=== PATIENT | female | born 1965 | race Caucasian/White ===

== ENCOUNTER 2021-10-06 11:46 | Emergency (ER) | payer SELFPAY ==
[2021-10-06 11:57] VITALS: BP 138/66; PULSE 83; RESP 20; TEMP 36.8; O2SAT 96; BMI 69.3
--- NOTE | 2021-10-06 12:05 | CRLHL7_ITS ---
For Patients: As a result of the Cures Act, medical imaging exams and procedure reports are released immediately into your electronic medical record. You may view this report before your referring provider. If you have questions, please contact your health care provider. INDICATION: [id number], weakness TECHNIQUE: CT chest pulmonary angiogram acquired with IV contrast. 95 cc Isovue 370 COMPARISON: None FINDINGS: Cardiovascular structures: Normal vascular enhancement of the pulmonary arteries, no sign of pulmonary embolism. Heart size is normal. No sign of aneurysm or dissection in the thoracic aorta. Mediastinum and antonio: No mass or adenopathy. Lungs: Clear. Pleura and pericardium: No effusions. Chest wall and axilla: No mass or adenopathy. Bones: No significant findings. Upper abdomen: Hiatal hernia. IMPRESSION: No evidence of pulmonary emboli or pneumonia. Hiatal hernia. Dictated by Jason Sanchez MD @ 10/06/2021 2:05:20 PM Please note that all CT scans at this facility use dose modulation, iterative reconstruction, and/or weight-based dosing when appropriate to reduce radiation dose to as low as reasonably achievable. Dictated by: Jason Sanchez MD @ 10/06/2021 14:05:27 (Electronically Signed)
--- NOTE | 2021-10-06 12:15 | ED.GENADULT ---
HPI - General Adult General Time Seen by Provider: 12:14 Date Seen: 10/06/21 Chief complaint: Weakness Stated complaint: Shortness of breath,fatigue Time Seen by Provider: 10/06/21 11:57 Source: patient Mode of arrival: ambulatory Limitations: no limitations History of Present Illness HPI narrative: The patient is a 55-year-old female who reports a history of weakness, and shortness of breath since Saturday. She developed some mouth sores as well, felt short of breath, and the shortness of breath continues today. She has had COVID in the past, she feels generally weak, no focal neurologic complaint, no headache. No history of respiratory issues but family has a history of asthma. No history of coronary artery disease or COPD. She lives in [place], she was dropping off her car to her daughter's to borrow, and stop by the ER as she was not feeling well. No leg swelling edema, no bleeding or clotting problems. No pain. Related Data Home Medications Medication Instructions Recorded Confirmed control 10/06/21 cyclobenzaprine PO DAILY PRN 10/06/21 Allergies Allergy/AdvReac Type Severity Reaction Status Date / Time No Known Drug Allergies Allergy Verified 10/06/21 13:08 Review of Systems Status of ROS: Reports: 10 or more systems reviewed and unremarkable except as noted in History and below PFSH PFS Social History Smoking Status: Current some day smoker What tobacco products do you use: cigarettes Years smoked: 30 Second hand tobacco smoke exposure: No How often do you have a drink containing alcohol: never AUDIT-C Alcohol total score: 0 Non-prescribed substance use: denies use service: No Exam Narrative: Exam Narrative: Objective: The patient is in no apparent distress, alert or x3, noncyanotic Neck is supple Chest diminished air exchange bilaterally but there is airflow bilaterally. No rales or wheezes. Heart rate and rhythm regular 2/6 systolic ejection murmur, no S3 no S4, no rubs or clicks Abdomen benign soft nontender Extremities without edema, good peripheral perfusion noted Neurologic is nonfocal upper extremities HEENT show no facial abnormality, mouth slightly dry. Skin exam is unremarkable Const: Vital Signs, click to edit/add: Vital Signs - 24 hr 10/06/21 11:57 Temperature 98.3 F Pulse Rate [Left P ulse Oximeter] 83 Respiratory Rate 20 Blood Pressure [Ri ght Upper Arm] 138/66 Pulse Oximetry 96 Course Course Hospital Course: The patient will get an IV, IV fluid, aspirin, EKG, cardiac monitoring and oximetry, CT scan of the chest to rule out PE and pneumonia, repeat COVID test. Will also give her IV Solu-Medrol as she has symptoms of an allergic-type reaction early in the week. Vital Signs Vital signs: Initial Vital Signs Temperature 98.3 F 10/06/21 11:57 Temperature Source Temporal Artery Scan 10/06/21 11:57 Pulse Rate 83 10/06/21 11:57 Pulse Rhythm 10/06/21 11:57 Respiratory Rate 20 10/06/21 11:57 Blood Pressure 138/66 10/06/21 11:57 Blood Pressure Mean 90 10/06/21 11:57 Blood Pressure Position Supine 10/06/21 11:57 Pulse Oximetry 96 10/06/21 11:57 Oxygen Delivery Method 10/06/21 11:57 Vital Signs Temperature 98.3 F 10/06/21 11:57 Pulse Rate 83 10/06/21 11:57 Respiratory Rate 20 10/06/21 11:57 Blood Pressure 138/66 10/06/21 11:57 Pulse Oximetry 96 10/06/21 11:57 Temperature 98.3 F 10/06/21 11:57 Pulse Rate 83 10/06/21 11:57 Respiratory Rate 20 10/06/21 11:57 Blood Pressure 138/66 10/06/21 11:57 Pulse Oximetry 96 10/06/21 11:57 Medical Decision Making MDM Narrative Medical decision making narrative: The patient has shortness of breath and weakness, and will have a workup for acute coronary syndrome, pulmonary embolus, rehydration, will check electrolytes labs. Differential be broad including acute coronary syndrome, PE, pneumonia, COVID, electrolyte abnormality Addendum: Patient's EKG by my read shows normal sinus rhythm no acute ST T wave changes some mild flattening of the T-waves, no ST elevation. The patient's CT scan of the chest shows no evidence of pulmonary emboli or pneumonia. Her laboratory studies look reassuring her D-dimer was slightly elevated but again CT scan was negative for PE. The patient I believe had some type of viral illness and, some type of allergic reaction I think the dose of Solu-Medrol be useful, would have her on prednisone 20 mg b.i.d. for the next 5 days. Light activity, light diet, recheck with primary care in the next 3-4 days certainly sooner return to the ED problems concerns difficulty. Of note is her troponin was negative her CBC look reassuring, her CRP was reassuring. Her main complaint was weakness and initially state this symptoms started Saturday as some type of allergic-type process. Her COVID is still pending but she has already had COVID, and will let her know her results. Lab Data Labs: Lab Results 10/06/21 10/06/21 10/06/21 Range/Units 12:35 12:35 12:35 WBC 8.45 (4.50-11.00) K/uL RBC 4.68 (4.00-5.20) m/uL Hgb 13.6 (12.0-16.0) gm/dL Hct 41.2 (33.0-51.0) % MCV 88 (80-100) fL MCH 29 (26-34) pg MCHC 33 (32-36) gm/dL RDW Coeff of Dona 12.8 (11.5-15.5) % Plt Count 338 (140-440) K/uL Neut % (Auto) 62.1 (42.0-72.0) % Lymph % (Auto) 25.1 (20-44) % [place] % (Auto) 8.4 (0.0-11.0) % Eos % (Auto) 3.2 (0.0-7.0) % Baso % (Auto) 1.1 (0.0-3.0) % Neut # (Auto) 5.25 (1.7-7.0) K/uL Lymph # (Auto) 2.12 (0.90-2.90) K/uL [place] # (Auto) 0.70 (0.00-0.90) K/UL Eos # (Auto) 0.27 (0.00-0.50) K/uL Baso # (Auto) 0.09 (0.00-0.30) K/uL Abs Immat Gran (auto) 0.01 (0.00-0.30) K/uL D-Dimer Quant (PE/DVT) 0.61 H (0.00-0.50) ug/ml Sodium 139 (135-149) mmol/L Potassium 3.0 L (3.6-5.1) mmol/L Chloride 107 (96-114) mmol/L Carbon Dioxide 24 (20-32) mmol/L BUN 11 (7-30) mg/dL Creatinine 0.8 (0.5-1.5) mg/dL Estimated Creat Clear 72.34 Glucose 126 H (60-115) mg/dL Calcium 8.6 (8.4-10.6) mg/dL Total Bilirubin 0.5 (0.1-1.5) mg/dL Direct Bilirubin 0.3 (0.0-0.5) mg/dL AST 58 H (12-35) U/L ALT 63 H (4-35) U/L Alkaline Phosphatase 75 (40-150) U/L Troponin I < 0.01 L (0.01-0.04) ng/mL C-Reactive Protein 1.2 H (0.5-1.0) mg/dL Total Protein 7.4 (6.0-8.3) g/dL Albumin 4.2 (3.3-5.0) g/dL HCG, Qual (Negative) 10/06/21 Range/Units 12:35 WBC (4.50-11.00) K/uL RBC (4.00-5.20) m/uL Hgb (12.0-16.0) gm/dL Hct (33.0-51.0) % MCV (80-100) fL MCH (26-34) pg MCHC (32-36) gm/dL RDW Coeff of Dona (11.5-15.5) % Plt Count (140-440) K/uL Neut % (Auto) (42.0-72.0) % Lymph % (Auto) (20-44) % [place] % (Auto) (0.0-11.0) % Eos % (Auto) (0.0-7.0) % Baso % (Auto) (0.0-3.0) % Neut # (Auto) (1.7-7.0) K/uL Lymph # (Auto) (0.90-2.90) K/uL [place] # (Auto) (0.00-0.90) K/UL Eos # (Auto) (0.00-0.50) K/uL Baso # (Auto) (0.00-0.30) K/uL Abs Immat Gran (auto) (0.00-0.30) K/uL D-Dimer Quant (PE/DVT) (0.00-0.50) ug/ml Sodium (135-149) mmol/L Potassium (3.6-5.1) mmol/L Chloride (96-114) mmol/L Carbon Dioxide (20-32) mmol/L BUN (7-30) mg/dL Creatinine (0.5-1.5) mg/dL Estimated Creat Clear Glucose (60-115) mg/dL Calcium (8.4-10.6) mg/dL Total Bilirubin (0.1-1.5) mg/dL Direct Bilirubin (0.0-0.5) mg/dL AST (12-35) U/L ALT (4-35) U/L Alkaline Phosphatase (40-150) U/L Troponin I (0.01-0.04) ng/mL C-Reactive Protein (0.5-1.0) mg/dL Total Protein (6.0-8.3) g/dL Albumin (3.3-5.0) g/dL HCG, Qual Negative (Negative) Discharge Plan Discharge Clinical Impression: Shortness of breath, Weakness Prescriptions: No Action cyclobenzaprine [Flexeril] PO DAILY PRN0RF control 0RF Label Comments: control daily
[2021-10-06] MEDS: ASPIRIN 81 MG TAB.CHEW 324 MG PO (12:30)
[2021-10-06] MEDS: 0.9 % SODIUM CHLORIDE 1000 ml 1,000 ML 6000 ML IV (12:30)
[2021-10-06 12:44] LABS: Basophils Absolute Auto 0.09 K/uL (0.00-0.30); Basophils Percent Auto 1.1 % (0.0-3.0); Eosinophils Absolute Auto 0.27 K/uL (0.00-0.50); Eosinophils Percent Auto 3.2 % (0.0-7.0); Hematocrit 41.2 % (33.0-51.0); Hemoglobin* 13.6 gm/dL (12.0-16.0); Immature Granulocytes Abs Auto 0.01 K/uL (0.00-0.30); Lymphocytes Absolute Auto 2.12 K/uL (0.90-2.90); Lymphocytes Percent Auto 25.1 % (20-44); Mean Corpuscular HGB Conc 33 gm/dL (32-36); Mean Corpuscular Hemoglobin 29 pg (26-34); Mean Corpuscular Volume 88 fL (80-100); Monocytes Percent Auto 8.4 % (0.0-11.0); Neutrophils Absolute Auto 5.25 K/uL (1.7-7.0); Neutrophils Percent Auto 62.1 % (42.0-72.0); Platelet Count* 338 K/uL (140-440); RDW Coefficient of Variation % 12.8 % (11.5-15.5); Red Blood Count 4.68 m/uL (4.00-5.20); White Blood Count* 8.45 K/uL (4.50-11.00)
[2021-10-06 13:07] LABS: Chloride* 107 mmol/L (96-114)
[2021-10-06 13:08] LABS: Albumin* 4.2 g/dL (3.3-5.0); Sodium* 139 mmol/L (135-149)
[2021-10-06 13:10] LABS: HCG Qualitative Serum* Negative (Negative)
[2021-10-06 13:11] LABS: Alanine Aminotransferase* 63 U/L (4-35); Alkaline Phosphatase* 75 U/L (40-150); Aspartate Amino Transferase* 58 U/L (12-35); Bilirubin Direct* 0.3 mg/dL (0.0-0.5); Bilirubin Total* 0.5 mg/dL (0.1-1.5); Blood Urea Nitrogen* 11 mg/dL (7-30); Carbon Dioxide* 24 mmol/L (20-32); Creatinine* 0.8 mg/dL (0.5-1.5); Est. Creatinine Clearance* 72.34; Total Protein* 7.4 g/dL (6.0-8.3)
[2021-10-06 13:12] LABS: Calcium* 8.6 mg/dL (8.4-10.6); D Dimer Quantitative* 0.61 ug/ml (0.00-0.50); Glucose* 126 mg/dL (60-115)
[2021-10-06 13:14] LABS: C Reactive Protein* 1.2 mg/dL (0.5-1.0)
[2021-10-06 13:37] LABS: Slide Review Reflex No
[2021-10-06 13:51] LABS: Troponin I* < 0.01 ng/mL (0.01-0.04)
[2021-10-06 14:18] VITALS: BP 114/76; PULSE 79; RESP 20; O2SAT 94
[2021-10-06 14:26] LABS: Appearance Urine Slightly Cloudy (Clear); Bilirubin Urine Negative (Negative); Blood Urine 3+ (Negative); Glucose Urine Negative (Negative); Ketones Urine Negative (Negative); Leukocyte Esterase Urine Trace (Negative); Nitrite Urine Negative (Negative); Protein Urine 1+ (Negative); pH Urine 6.5 (5.0-8.5)
[2021-10-06 14:30] VITALS: BP 137/69; PULSE 76; RESP 18; O2SAT 96
[2021-10-06 14:31] LABS: Color Urine Dark Yellow (Yellow)
[2021-10-06 14:32] LABS: SARS PCR* Negative SARS-CoV-2 (Negative)
[2021-10-06] MEDS: METHYLPREDNISOLONE SOD SUCC 62.5 MG/ML (125) 125 MG IVP (14:43)
[2021-10-06 14:47] LABS: Bacteria Urine Moderate; Squamous Epithelial Cell Urine Moderate (None-Few)
[2021-10-06] MEDS: POTASSIUM BICARB 25 MEQ EFFERVESCENT TAB PO (14:57)
[2021-10-06 15:13] VITALS: BP 137/69; PULSE 76; RESP 20
== END 2021-10-06 15:15 ==
PROVIDERS: Emergency Provider Family Medicine
DX: R06.02 Shortness of breath (principal); R53.1 Weakness
CPT/HCPCS: 96374; 36415; 71260; 80048; 80076; 81001; 84484; 84703; 85025; 85379; 86140; 87086; 87635; 99284; 99285; A9270; J2930; J7030; Q9967